=== PATIENT | female | born 1935 | race Caucasian/White ===

== ENCOUNTER 2019-08-23 12:42 | Emergency (ER) | payer MEDICARE, SELFPAY ==
--- NOTE | ~2019-08-23 | XR_ITS ---
EXAMINATION: XR shoulder RT min 2V DATE: 08/23/2019 13:50 INDICATION: Right shoulder pain. Fall. TECHNIQUE: 4 views of right shoulder were obtained. COMPARISON: None. FINDINGS: There is superior subluxation of humeral head with narrowing of the subacromial space and r emodeling of the undersurface of the acromion, consistent with chronic rotator cuff tear with cuff ar thropathy. No fracture. There is moderate osteoarthritis of glenohumeral joint and acromioclavicular joint. IMPRESSION: 1. Polyarticular osteoarthritis. 2. Chronic right rotator cuff tear with cuff arthropathy. Reviewed, dictated and finalized at location A. 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
--- NOTE | ~2019-08-23 | XR_ITS ---
EXAMINATION: XR knee RT min 4V DATE: 08/23/2019 13:50 INDICATION: Right knee pain. TECHNIQUE: 4 views of right knee were obtained. COMPARISON: Right knee radiographs 11/09/2016 FINDINGS: There is a total right knee arthroplasty with patellar resurfacing. Tibia demonstrates 11 d egrees posterior angulation with respect to tibial component without change. No periprosthetic lucenc y to suggest loosening or infection. No fracture. There is a small knee joint effusion. IMPRESSION: 1. Total right knee arthroplasty without change in alignment. 2. Small right knee joint effusion. Reviewed, dictated and finalized at location A. NICAL INTERN
--- NOTE | ~2019-08-23 | XR_ITS ---
EXAMINATION: XR hip RT 2V w AP pelvis DATE: 08/23/2019 13:50 INDICATION: Right hip pain. Fall. TECHNIQUE: An anteroposterior view of the pelvis and 3 views of right hip were obtained. COMPARISON: Pelvis and hip radiographs 04/13/2017 FINDINGS: Bone alignment is normal. No fracture. There is severe lumbar spondylosis. There is moderat e osteoarthritis of the hips. Osteitis pubis is noted. IMPRESSION: 1. Moderate osteoarthritis of the hips. Reviewed, dictated and finalized at location A. S REMOVER
--- NOTE | ~2019-08-23 | CT_ITS ---
EXAMINATION: CT brain wo con, CT cervical spine wo con EXAM DATE: 08/23/2019 13:39 (accession [id number]), 08/23/2019 13:40 (accession [id number]) INDICATION: Fall, head injury. TECHNIQUE: Spiral CT of the head was performed without contrast. Axial, coronal and sagittal images were reviewed. Spiral CT of the cervical spine was performed without contrast. Axial images were rev iewed. Coronal and sagittal reformatted images were also reviewed. The dose-length product (DLP) fo r this examination was 605.33 (accession [id number]), 343.68 (accession [id number]) mGy-cm. The exposure was tailored according to patient size, and iterative reconstruction (ASIR) was used as additional dose reduction technique. Comparison is made to prior examination from 11/09/2016. FINDINGS: HEAD CT: There is no acute intraparenchymal hemorrhage. No evidence of intraparenchymal brain mass l esion. No evidence of acute infarction. There is mild periventricular and subcortical hypodensity, n onspecific but probably related to small vessel ischemic disease. There is moderate prominence of t he sulci and ventricles related to cerebral atrophy. There is intracranial carotid arteriosclerosis . There is no mass effect or midline shift. There is no obstructive hydrocephalus suspected. There are no extra-axial collections. There are no acute calvarial fractures. Patient has had left-sided ocular lens surgery. Small frontal scalp contusion. The visualized sinuses and mastoid air cells a re well aerated. CERVICAL CT: There is advanced cervical spondylosis. There is no evidence of acute cervical fracture. The odontoid process is intact. Pre-dens space is normal. Prevertebral soft tissue is normal. Th ere are no soft tissue abnormalities identified. There is no disc space widening or traumatic verteb ral body subluxation suspected. A detailed level by level evaluation of spondylosis can be added a s addendum if requested. IMPRESSION: 1. No acute intracranial or cervical findings. 2. Age-related intracranial findings. Advanced cervical spondylosis. 3. Small frontal scalp contusion. Reviewed, dictated and finalized at location B. 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 No acute intracranial or cervical findings. 2. Age-related intracranial findings. Advanced cervical spondylosis. 3. Small frontal scalp contusion.
--- NOTE | ~2019-08-23 | XR_ITS ---
EXAMINATION: XR hand RT min 3V DATE: 08/23/2019 13:50 INDICATION: Right hand pain. Fall. TECHNIQUE: 3 views of right hand were obtained. COMPARISON: Right hand radiographs 04/11/2004 FINDINGS: Bone alignment is normal. No fracture. There is severe osteoarthritis of first carpometacar pal joint, moderate osteoarthritis of second carpometacarpal joint, moderate to severe osteoarthritis of second through fourth metacarpophalangeal joints, mild osteoarthritis of first and fifth metacarp ophalangeal joints, mild osteoarthritis of the second through fifth proximal interphalangeal joints, severe osteoarthritis of first interphalangeal joint, moderate osteoarthritis of second, fourth, and fifth distal interphalangeal joints, and severe osteoarthritis of third distal interphalangeal joint. IMPRESSION: 1. Polyarticular osteoarthritis. Reviewed, dictated and finalized at location A. 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
--- NOTE | 2019-08-23 13:08 | ED.FALL ---
HPI - Fall General Chief Complaint: Fall Stated Complaint: fall Time Seen by Provider: 08/23/19 13:05 Source: patient Mode of arrival: ambulatory Limitations: no limitations History of Present Illness HPI Narrative: The pt is an 84 y/o female who presents to the ED with c/o a recent fall that occurred just before arriving to the ED. The pt states that she was walking into a restaurant when she fell trying to step over the curb. She hit the rt side of her head, causing her nose to start bleeding from her lt nare. The pt reports neck pain, upper back pain, rt hip pain, and rt hand wound, but denies syncope, jaw pain, rib pain, SOB, nausea, or dizziness. She is able to walk and bear some weight on her rt leg. She is not on blood thinners and is not sure when she last received a Tetanus shot. The pt has a SHx of knee surgery. MD complaint: fall Onset (ago): unknown (recent, just before arriving to the ED) Fall from: standing Loss of consciousness: none Associated symptoms (after fall): other (neck pain, upper back pain, rt hip pain, rt hand wound) Related Data Allergies Allergy/AdvReac Type Severity Reaction Status Date / Time No Known Allergies Allergy Verified 08/23/19 13:19 Review of Systems Review of Systems: All systems reviewed & are unremarkable except as noted in HPI and below Constitutional: Constitutional: Denies other (dizziness) Respiratory: Respiratory: Denies dyspnea Gastrointestinal: Gastrointestinal: Denies nausea Musculoskeletal: Musculoskeletal: Reports back pain, Reports neck pain (upper) and Reports other (Reports rt hip pain; Denies jaw pain or rib pain) Integumentary/Breasts: Skin/Breast: Reports other (rt hand wound) Neurologic: Denies syncope [facility] Past Medical History Medical History (Updated 08/23/19 @ 14:37 by Abby Hernandez MD) A-fib Arthritis bilateral knees, back Back pain Colon cancer GERD (gastroesophageal reflux disease) Hypertension Hypothyroid Rapid heart rate Rectal polyp Surgical History Surgical History (Updated 08/23/19 @ 13:40 by Na Mcgrath) H/O thyroidectomy H/O: hysterectomy History of intestinal surgery colon resection Hx of appendectomy Hx of knee surgery Social History Social History (Updated 08/23/19 @ 13:40 by Na Mcgrath) Smoking status: Never smoker Second hand tobacco smoke exposure: Yes Gender identity (if verbalized by the patient): Female Exam Const: General: no acute distress and alert Orientation/consciousness: oriented x3 HENMT: Head: no palpable skull fracture, normocephalic and other (right temporal contusion, midforehead hematoma) Ears: hearing grossly normal bilaterally, external ears normal and TM's normal bilaterally General nose exam: other (no active bleeding for left nare, no septal hematoma) Mouth: Yes oral mucosae normal, Yes lip normal and Yes tongue normal Throat: posterior oropharynx normal Eyes: Conjunctivae: conjunctivae normal Pupils: PERRL EOM: EOM intact bilaterally Neck: Neck: normal visual inspection Chest: Chest palpation & inspection: normal inspection of the chest and no tenderness Resp: Effort & Inspection: normal respiratory effort Auscultation: clear to auscultation bilaterally Cardio: Rate: regular rate Rhythm: regular rhythm Heart sounds: no murmurs GI: Inspection: non-distended GI Palp: No abdominal tenderness, Yes soft and No tender Auscultation: normal bowel sounds Back/Spine/Pelvis: Back: no CVA tenderness Skin: General skin exam: normal color Rashes: no rashes Neuro: General: oriented x3, moves all extremities and no meningeal signs Extrem: General: pedal edema present and no edema Other: decreased ROM to right shoulder due to pain. No swelling, no bruising. no crepitus Psych: Mental Status: mental status grossly normal Affect: normal affect Course Reevaluation(s) Reevaluation #1: I discussed with patient no acute fracture. I did discussed sign of rot
[2019-08-23] MEDS: ACETAMINOPHEN 500 MG TABLET 1000 MG PO (13:27)
--- NOTE | 2019-08-23 13:33 | PC.NURSE ---
Pt taken to Xray
[2019-08-23 13:36] VITALS: BP 186/68; PULSE 60; RESP 14; TEMP 36.7; O2SAT 97
[2019-08-23] MEDS: TETANUS,DIPHTHERIA,AC PERTUSSIS ADULT (0.5 ML) BOOSTRIX IM (14:02)
[2019-08-23 15:00] VITALS: BP 163/69; PULSE 59; O2SAT 99
== END 2019-08-23 15:02 | disposition home or self-care (01) ==
PROVIDERS: Emergency Provider General Practice; PCP Family Medicine Adolescent Medicine
DX: S09.90XA Unspecified injury of head, initial encounter (principal); S61.401A Unspecified open wound of right hand, initial encounter; S46.911A Strain of unspecified muscle, fascia and tendon at shoulder and upper arm level, right arm, initial encounter; M19.90 Unspecified osteoarthritis, unspecified site; I48.91 Unspecified atrial fibrillation; K21.9 Gastro-esophageal reflux disease without esophagitis; I10 Essential (primary) hypertension; E03.9 Hypothyroidism, unspecified; Z23 Encounter for immunization; W10.1XXA Fall (on)(from) sidewalk curb, initial encounter
CPT/HCPCS: 70450; 72125; 73030; 73130; 73502; 73521; 73564; 90471; 90715; 99284; A9270

== ENCOUNTER → 2020-02-11 14:32 | Outpatient (CLI) | payer MEDICARE, SELFPAY ==
--- NOTE | ~2020-02-11 | MM_ITS ---
EXAMINATION: MM screening [facility] w elizabet HISTORY: Screening mammogram TECHNIQUE: Craniocaudal and mediolateral oblique 3-D tomosynthesis images were obtained and synthetic 2-D images were generated. CAD analysis was submitted and interpreted. COMPARISON: Comparison to multiple prior studies sequentially, with oldest reviewed study dated 10/02. BREAST PARENCHYMAL COMPOSITION: There are scattered areas of fibroglandular density. FINDINGS: There are stable benign-appearing bilateral breast calcifications There is no evidence of s uspicious mass, calcification, or architectural distortion to suggest malignancy in either breast. Th ere has been no suspicious interval change. IMPRESSION: 1. No mammographic evidence of malignancy. 2. Recommend routine screening mammography in one year. BI-RADS Category 2: Benign finding(s). Reviewed, dictated and finalized at location A.
== END ==
PROVIDERS: PCP Family Medicine Adolescent Medicine; Visit Provider Family Medicine Adolescent Medicine
DX: Z12.31 Encounter for screening mammogram for malignant neoplasm of breast (principal)
CPT/HCPCS: 77063; 77067

== ENCOUNTER → 2021-03-21 10:58 | Outpatient (CLI) | payer MEDICARE, SELFPAY ==
--- NOTE | ~2021-03-21 | MM_ITS ---
EXAMINATION: MM screening [facility] w elizabet HISTORY: Screening TECHNIQUE: Craniocaudal and mediolateral oblique 3-D tomosynthesis images were obtained and synthetic 2-D images were generated. CAD analysis was submitted and interpreted. COMPARISON: Comparison to multiple prior studies sequentially, with oldest reviewed study dated 10/07. BREAST PARENCHYMAL COMPOSITION: There are scattered areas of fibroglandular density. FINDINGS: There is no evidence of suspicious mass, calcification, or architectural distortion to sugg est malignancy in either breast. There has been no suspicious interval change. IMPRESSION: 1. No mammographic evidence of malignancy. 2. Recommend routine screening mammography in one year. BI-RADS Category 1: Negative Reviewed, dictated and finalized at location A.
== END ==
PROVIDERS: PCP Family Medicine Adolescent Medicine; Visit Provider Family Medicine Adolescent Medicine
DX: Z12.31 Encounter for screening mammogram for malignant neoplasm of breast (principal)
CPT/HCPCS: 77063; 77067

== ENCOUNTER 2025-02-09 15:51 | Emergency (ER) | payer MEDICARE, SELFPAY ==
--- NOTE | 2025-02-09 15:57 | PC.NURSE ---
Patient family up to desk reporting they are going to an express care instead.
== END 2025-02-09 16:02 | disposition left against medical advice (07) ==
PROVIDERS: PCP Family Medicine Adolescent Medicine
DX: Z53.21 Procedure and treatment not carried out due to patient leaving prior to being seen by health care provider (principal)
CPT/HCPCS: 99199